=== PATIENT | female | born 1990 | race Caucasian/White ===

== ENCOUNTER → 2022-03-30 | Outpatient (CLI) | payer OTHER ==
[2022-03-30 15:08] LABS: ALBUMIN 4.3 g/dL (3.5-5.0); POTASSIUM 4.2 mmol/L (3.5-5.1)
[2022-03-30 15:09] LABS: CALCIUM 9.2 mg/dL (8.3-10.5)
[2022-03-30 15:10] LABS: TOTAL PROTEIN 8.1 g/dL (6.4-8.3)
[2022-03-30 15:12] LABS: TOTAL BILIRUBIN 0.3 mg/dL (0.2-1.2)
[2022-03-30 19:59] LABS: BASO # 0.04 K/mm3 (0.02-0.10); EOS # 0.35 K/mm3 (0.04-0.40); EOS % 4.3 % (1.0-5.0); HEMATOCRIT 43.2 % (37.0-47.0); HEMOGLOBIN 13.9 g/dL (12.5-16.0); LYMPH# 1.92 K/mm3 (1.50-4.00); MEAN CELL VOLUME 91 fl (78-100); MEAN CORPUSCULAR HEMOGLOBIN 29 pg (27-31); MEAN CORPUSCULAR HGB CONC 32 g/dL (33-37); MEAN PLATELET VOLUME 9.2 fl (7.4-10.4); MONO # 0.57 K/mm3 (0.20-0.80); NEU # 5.22 K/mm3 (1.40-6.50); PLATELET COUNT 479 K/mm3 (130-400); RED BLOOD COUNT 4.74 M/mm3 (4.10-5.30); WHITE BLOOD COUNT 8.1 K/mm3 (4.8-10.8)
== END ==
LOC: LAB 14:45
PROVIDERS: Internal Medicine
DX: G47.01 Insomnia due to medical condition (principal); F41.8 Other specified anxiety disorders

== ENCOUNTER → 2022-05-28 | Outpatient (CLI) | payer OTHER ==
[2022-05-28 17:18] LABS: BASO # 0.05 K/mm3 (0.02-0.10); EOS # 0.33 K/mm3 (0.04-0.40); EOS % 3.4 % (1.0-5.0); HEMATOCRIT 39.2 % (37.0-47.0); HEMOGLOBIN 12.7 g/dL (12.5-16.0); LYMPH# 2.27 K/mm3 (1.50-4.00); MEAN CELL VOLUME 90 fl (78-100); MEAN CORPUSCULAR HEMOGLOBIN 29 pg (27-31); MEAN CORPUSCULAR HGB CONC 32 g/dL (33-37); MEAN PLATELET VOLUME 8.3 fl (7.4-10.4); MONO # 0.67 K/mm3 (0.20-0.80); NEU # 6.41 K/mm3 (1.40-6.50); PLATELET COUNT 415 K/mm3 (130-400); RED BLOOD COUNT 4.34 M/mm3 (4.10-5.30); WHITE BLOOD COUNT 9.7 K/mm3 (4.8-10.8)
[2022-05-28 17:31] LABS: POTASSIUM 3.9 mmol/L (3.5-5.1); SODIUM 139 mmol/L (136-145)
[2022-05-28 17:32] LABS: CALCIUM 9.2 mg/dL (8.3-10.5)
[2022-05-28 17:33] LABS: GLUCOSE 83 mg/dL (65-105); TOTAL PROTEIN 7.5 g/dL (6.4-8.3)
[2022-05-28 17:34] LABS: CARBON DIOXIDE 22 mmol/L (22-29)
[2022-05-28 17:35] LABS: TOTAL BILIRUBIN 0.2 mg/dL (0.2-1.2)
[2022-05-28 17:38] LABS: AST-SGOT 22 U/L (5-34)
[2022-05-28 17:39] LABS: ALT/SGPT 25 U/L (0-55)
--- NOTE | 2022-05-28 17:44 | NUR ---
Pt hand carried EKG back to walk in clinic.
[2022-05-28 17:58] LABS: TROPONIN-I < 0.030 ng/mL (<0.030)
== END ==
LOC: AMSURD 17:05
PROVIDERS: Nurse Practitioner
DX: R07.9 Chest pain, unspecified (principal)

== ENCOUNTER → 2024-12-25 | Outpatient (CLI) | payer OTHER ==
[2024-12-25 16:36] LABS: BASO # 0.05 K/mm3 (0.02-0.10); EOS # 0.24 K/mm3 (0.04-0.40); EOS % 2.7 % (1.0-5.0); HEMOGLOBIN 13.4 g/dL (12.5-16.0); LYMPH# 2.03 K/mm3 (1.50-4.00); MEAN CELL VOLUME 90 fl (78-100); MEAN CORPUSCULAR HEMOGLOBIN 30 pg (27-31); MEAN CORPUSCULAR HGB CONC 33 g/dL (33-37); MEAN PLATELET VOLUME 8.8 fl (7.4-10.4); MONO # 0.59 K/mm3 (0.20-0.80); NEU # 6.05 K/mm3 (1.40-6.50); PLATELET COUNT 422 K/mm3 (130-400); RED BLOOD COUNT 4.54 M/mm3 (4.10-5.30); RED CELL DISTRIBUTION WIDTH 12.7 % (11.5-14.5)
[2024-12-25 16:40] LABS: ALBUMIN 4.2 g/dL (3.5-5.0)
[2024-12-25 16:41] LABS: CALCIUM 9.2 mg/dL (8.3-10.5)
[2024-12-25 16:42] LABS: TOTAL PROTEIN 7.7 g/dL (6.4-8.3)
[2024-12-25 16:45] LABS: TOTAL BILIRUBIN 0.1 mg/dL (0.2-1.2)
[2024-12-25 16:49] LABS: MAGNESIUM 2.11 mg/dL (1.60-2.60)
== END ==
LOC: LAB 16:20
PROVIDERS: Internal Medicine
DX: F41.8 Other specified anxiety disorders (principal)